=== PATIENT | female | born 1955 | race Caucasian/White ===

== ENCOUNTER 2021-05-11 00:43 | Emergency (ER) | payer OTHER ==
[~2021-05-11 00:43] MED LIST: ASCORBIC ACID500 MG PO; DIOVAN HCT 1601 EACH PO; K-DUR20 MEQ PO; LOVAZA1 GM PO; TRAZODONE 50MG50 MG PO
[2021-05-11 01:24] LABS: BASOPHIL 0.4 % (0-2); EOSINOPHIL 2.5 % (0-7); HCT 41.5 % (37.0-47.0); HGB 13.8 g/dl (12.5-16.0); MCH 28.5 pg (25.0-31.0); MCHC 33.3 g/dL (32.0-36.0); MCV 85.6 fL (78.0-100.0); MONOCYTE 6.1 % (0-12); MPV 8.7 fL (6.0-9.5); NEUTROPHIL 74.7 % (41-80); NRBC 0; PLT 272 K/uL (150-400); RBC 4.85 M/uL (4.20-5.40); RDW 13.4 % (11.5-14.0); WBC 9.1 K/uL (4.0-10.5)
[2021-05-11 01:35] LABS: CREATININE 1.13 mg/dL (0.51-0.95); POTASSIUM 3.9 mmol/L (3.5-5.1)
[2021-05-11 02:31] LABS: CORONAVIRUS 2019 SARS-COV-2 NEGATIVE (NEGATIVE); INFLUENZA A NAA NEGATIVE (NEGATIVE)
[2021-05-11] MEDS ORDERED: MOBIC7.5 MG PO (05:08)
[2021-05-11] MEDS ORDERED: NORCO 5-325 TA1 EACH PO (05:08)
[2021-05-11] MEDS ORDERED: MEDROL 4MG DOSEP4 MG PO (05:08)
== END 2021-05-11 05:36 | disposition home or self-care (01) ==
LOC: FER 00:43
PROVIDERS: Emergency Medicine Emergency Medical Services
DX: R91.8 Other nonspecific abnormal finding of lung field (principal); R91.1 Solitary pulmonary nodule; I12.9 Hypertensive chronic kidney disease with stage 1 through stage 4 chronic kidney disease, or unspecified chronic kidney disease; N18.9 Chronic kidney disease, unspecified; E11.22 Type 2 diabetes mellitus with diabetic chronic kidney disease; Z20.822 Contact with and (suspected) exposure to COVID-19; Z88.7 Allergy status to serum and vaccine; Z79.899 Other long term (current) drug therapy
CPT/HCPCS: 36415; 71045; 71275; 80048; 84484; 85025; 85379; 93005; J1885; J2270; J2405; J7030; Q9967; U0002